=== PATIENT | male | born 1950 | race Caucasian/White ===

== ENCOUNTER → 2021-04-08 | Outpatient (CLI) | payer OTHER ==
[~2021-04-08] MED LIST: CHILDREN'S ASPI81 M1 PO; CRESTOR40 MG PO; FLOMAX0.4 MG PO; NEXIUM 40 MG CA40 M1 PO; PROSCAR 5MG TABL5 MG PO; ZETIA10 MG PO
== END ==
LOC: SJCVC 10:36 → SJCVCIMAG 10:36
PROVIDERS: ATTEND Internal Medicine Cardiovascular Disease
DX: I65.23 Occlusion and stenosis of bilateral carotid arteries (principal); R07.9 Chest pain, unspecified; R00.0 Tachycardia, unspecified; I49.3 Ventricular premature depolarization; R94.39 Abnormal result of other cardiovascular function study; R93.1 Abnormal findings on diagnostic imaging of heart and coronary circulation; I25.10 Atherosclerotic heart disease of native coronary artery without angina pectoris; E78.00 Pure hypercholesterolemia, unspecified; I34.0 Nonrheumatic mitral (valve) insufficiency; R07.2 Precordial pain; R06.00 Dyspnea, unspecified; R09.89 Other specified symptoms and signs involving the circulatory and respiratory systems; L65.9 Nonscarring hair loss, unspecified; F41.9 Anxiety disorder, unspecified; I10 Essential (primary) hypertension; K63.5 Polyp of colon; K58.9 Irritable bowel syndrome, unspecified; K43.9 Ventral hernia without obstruction or gangrene; M79.10 Myalgia, unspecified site; B35.4 Tinea corporis; L30.9 Dermatitis, unspecified; K22.10 Ulcer of esophagus without bleeding; Z72.89 Other problems related to lifestyle; Z79.82 Long term (current) use of aspirin; Z79.899 Other long term (current) drug therapy

== ENCOUNTER → 2021-04-09 | Outpatient (CLI) | payer OTHER ==
[~2021-04-09] VITALS: Ht 182.9 cm; Wt 95.7 kg
[~2021-04-09] MED LIST changes: +COQ-10100 MG PO; +VITAMIN D325 MC2 PO
--- NOTE | ~2021-04-09 | HC ---
[facility] [place] [address] CONSULTATION Name: FABIANO YEAGER Room #: REG Milan Seymour#: [id number] Admission: 04/09/21 Attend Phys: Mark Falk MD, Discharge: Date of : 54 Report #: [id number] THIS REPORT FOR: cc: Markell Moon MD, Kevin MD Forman,Wilberto Alatorre MD ~ DATE OF SERVICE: 04/09/2021 We were asked to see the patient by Dr. Falk. HISTORY OF PRESENT ILLNESS: The patient is a 70 year old with coronary artery disease. The patient presents with progressive exertional angina. The patient had an elevated calcium score and had a nuclear stress test that showed a reversible defect in the lateral wall, septum and apex. Cardiac catheterization today shows important 3-vessel coronary disease including 99% LAD lesions, 99% circumflex stenosis and 70% posterolateral lesion in the right coronary. Left ventricular function is satisfactory; however, the patient denies having had coronary problems in the past. PAST MEDICAL HISTORY: Significant for hyperlipidemia. The patient denies hypertension and diabetes. MEDICATIONS: Include aspirin, Nexium, Zetia, Proscar, Crestor and Flomax. ALLERGIES: No allergies to medication. SOCIAL HISTORY: The patient is a never smoker. He claims to be an active bike rider, but has curtailed this activity recently. REVIEW OF SYSTEMS: GENERAL: No weight change, no fever or chills. EYES: Wears glasses. No new vision problems. ENT: Denies hearing problems, sinus problems. RESPIRATORY: Denies shortness of breath. CARDIAC: Occasional rest angina, decreased exercise capacity, exertional angina as mentioned. GASTROINTESTINAL: Denies nausea, vomiting, blood. GENITOURINARY: Denies urgency, frequency, blood. MUSCULOSKELETAL: Denies bone or joint pain. SKIN: Denies rash or infection. NEUROLOGIC: Denies motor or sensory dysfunction. HEMATOLOGIC: Denies bruisability or bleeding. ENDOCRINE: Denies goiter or tremor. PHYSICAL EXAMINATION: GENERAL: The patient is a pleasant fellow. [facility] [address] [place] [address] CONSULTATION Name: FABIANO YEAGER SUZANNE Room #: REG ASHLEY Bowman#: [id number] Admission: 04/09/21 Attend Phys: Mark Falk MD, Discharge: Date of : 54 Report #: [id number] VITAL SIGNS: Blood pressure is 150/100, heart rate is 70. HEENT: No scleral icterus. No arcus. NECK: No mass. I hear no bruits. CHEST: Clear to auscultation. HEART: Rhythm regular, no murmur. ABDOMEN: Soft. EXTREMITIES: No clubbing, cyanosis or edema. VASCULAR: 2+ distal pulses. No obvious saphenous vein problems. SKIN: No rash or infection. MUSCULOSKELETAL: No bone or joint asymmetry or deformity. NEUROLOGIC: No motor or sensory dysfunction. PSYCHIATRIC: Oriented x 3 and appropriate, shows insight into problem. I reviewed the findings of the cardiac catheterization and discussed our rationale for recommending coronary artery bypass surgery. Risks and details were discussed. Options and alternatives were reviewed. Risks include, but are not limited to, bleeding, infection, anesthesia risks, heart and lung problems, stroke and . The patient understands all of this and wishes to proceed. We will try to arrange surgery for Wednesday, 04/14. Thank you for the consult. By: 1148 2244 Wilberto Olivares MD /nt
[2021-04-09 07:28] VITALS: BP 151/91
[2021-04-09 07:44] LABS: HEMATOCRIT 49.6 % (42.0-52.0); HEMOGLOBIN 16.8 gm/dL (14.0-18.0); MCH 31.5 pg (26.0-34.0); MCHC 33.9 g/dL (28.0-37.0); RBC 5.34 mil/uL (4.50-6.00); RDW 12.8 % (10.5-14.5); WBC 6.8 thou/uL (4.0-11.0)
[2021-04-09 07:52] LABS: CALCIUM 9.6 mg/dL (8.5-10.1); CREATININE 1.1 mg/dL (0.7-1.3); POTASSIUM 3.7 mmol/L (3.5-5.1)
--- NOTE | 2021-04-09 08:24 | EKG ---
[place] [address] [facility] [place] [address] ELECTROCARDIOGRAM REPORT Name: FABIANO YEAGER [facility] [id number] Admission: 04/09/21 Attend Phys: Mark Falk MD, Discharge: Date of : 54 Report #: [id number] [facility] Test Date: 2021-04-09 Test Time: 07:57:06 Pat Name: FABIANO YEAGER Department: Room: Gender: Professor Of Communication And Writing: : 1950 Requested By: Mark Falk Order Number: [id number] : Fred Aleman Measurements Intervals [place] Rate: 63 P: 31 WI: 153 QRS: 0 QRSD: 97 T: 56 QT: 407 QTc: 417 Interpretive Statements Sinus rhythm Abnormal R-wave progression, early transition No previous ECG available for comparison Electronically Signed On 04-09-2021 8:24:18 PAYMENT POSTER by Fred Aleman [email or web address] <ELECTRONICALLY SIGNED> By: Fred Aleman MD, [facility] 04/09/21 0824 0757 0757 Fred Aleman MD, FACC /EPI
[2021-04-09 13:15] LABS: URINE BILIRUBIN NEGATIVE (Negative); URINE BLOOD NEGATIVE (Negative); URINE CLARITY CLEAR; URINE COLOR YELLOW; URINE GLUCOSE-RANDOM* NEGATIVE (Negative); URINE KETONES NEGATIVE (Negative); URINE LEUKOCYTES-REFLEX NEGATIVE (Negative); URINE NITRITE-REFLEX NEGATIVE (Negative); URINE PROTEIN (DIPSTICK) NEGATIVE (Negative); URINE SPECIFIC GRAVITY <= 1.005 (1.005-1.035); URINE UROBILINOGEN 0.2 E.U./dl (0.2-1.0)
[2021-04-09 13:20] LABS: BASOPHILS 0.7 % (0.0-2.0); EOSINOPHILS 0.5 % (0.0-3.0); HEMATOCRIT 48.1 % (42.0-52.0); HEMOGLOBIN 16.3 gm/dL (14.0-18.0); LYMPHOCYTES 21.7 % (24.0-44.0); MCH 31.8 pg (26.0-34.0); MCHC 33.9 g/dL (28.0-37.0); MCV 93.9 fL (80.0-100.0); MONOCYTES 7.1 % (1.0-8.0); PLATELET COUNT 168 thou/uL (150-400); RBC 5.12 mil/uL (4.50-6.00); RDW 12.7 % (10.5-14.5); WBC 7.1 thou/uL (4.0-11.0)
[2021-04-09 13:35] LABS: CALCIUM 9.2 mg/dL (8.5-10.1); CREATININE 1.1 mg/dL (0.7-1.3); POTASSIUM 4.1 mmol/L (3.5-5.1)
[2021-04-09 13:36] LABS: APTT 27.7 Seconds (24.5-32.8); INR 1.09; PROTIME 11.8 Seconds (10.5-12.1)
[2021-04-09 13:41] LABS: ALBUMIN 3.7 g/dL (3.4-5.0); TOTAL BILIRUBIN 0.9 mg/dL (0.2-1.0); TOTAL PROTEIN 6.6 g/dL (6.4-8.2)
--- NOTE | 2021-04-09 13:52 | CATHLAB ---
[facility] [place] [address] INVASIVE PROCEDURE REPORT Name: FABIANO YEAGER Room #: REG ASHLEY SeymourLeann#: [id number] Admission: 04/09/21 Attend Phys: Mark Falk MD, Discharge: Date of : 54 Report #: [id number] THIS REPORT FOR: cc: Markell Moon MD, Kevin MD Mancuso, Gerald M. MD [facility] ~ APPROVED REPORT Study performed: 04/09/2021 09:36:06 Patient Details Patient Status: Out-Patient Room #: The patient is a 70 year-old male Event Personnel Mark Falk Coroner Forensic Technician, Joselyn Powell RTR, INFORMATION SCIENTIST Monitor, Tommie Waterman RN RN, Flory Pacheco RTR Scrub Procedures Performed Art Access - R femoral artery* Left Heart Cath w/or w/o Coronaries 5889120 [facility] Aortogram Abdominal Peripheral Angio 951598 Hemostasis w/ Mynx 41319 Initial Mod Sed Same Phys/QHP Gr5y 589033 39419 Mod Sed Same Phys/QHP Ea 604722 Procedure Narrative The Right Groin^ was infiltrated with 1% Lidocaine subcutaneous anesthesia. A PINNACLE 6FR Sheath #[id number] sheath was inserted into the RFA^. Coronary angiography was performed using coronary diagnostic catheters. The right coronary system was accessed and visualized with a JR4 catheter. The left coronary system was accessed and visualized with a JL4 catheter. The left ventricle was accessed and visualized with a PIGTAIL catheter. Left ventriculogram was performed in 30 degree projection. An aortogram of the abdominal aorta was performed. Pre-demployment femoral angiogram was performed . Closure device was deployed with a Fr MYNXGRIP 6/7F #[id number]. The patient tolerated the procedure well and there were no complications associated with the procedure. There was no hematoma. Intraoperative Conscious Sedation Sedation start time: 9:54 Case end Time: 10:22 Fentanyl 50 mcg Versed 2.0 mg [facility] [address] [place] [address] INVASIVE PROCEDURE REPORT Name: SHOBHAFABIANO SUZANNE Room #: [facility]#: [id number] Admission: 04/09/21 Attend Phys: Mark Falk, Discharge: Date of : 54 Report #: [id number] Fluoro Time: 1.50 minutes Dose: DAP 7906.20 cGycm2 970 mGy Contrast Type and Amount: Omnipaque 130 ml Hemodynamics The aortic pressure is 141/77 mmHg with a mean of 104 mmHg. The left ventricular pressure is 151/-2 mmHg with a mean of mmHg. The left ventricular end diastolic pressure is 21 mmHg. Conclusion #1 Normal left ventricular size and systolic function EF 60%. #2 tortuous abdominal aorta without significant aneurysm formation. Mild plaquing is noted. #3 left main is heavily calcified ostial and distal 30 to 40% giving rise to LAD and circumflex. #4 there is an ostial LAD which is very eccentric which is a high-grade lesion calcification also a high-grade segment just distal to a diagonal takeoff which is subtotaled. And heavily calcified. #5 ostial circumflex large area of calcium and high-grade subtotal lesion. Nondominant #6 large dominant right coronary also heavily calcified eccentric 50% lesion moderate disease throughout and then the posterior lateral branch has a mid vessel lesion of 70% PDA mildly diseased some collateral filling to the left system is noted faintly. Recommendations and plan: Continue aggressive risk factor modification there is extensive calcification high-grade nature of ostial disease circumflex proximal LAD and distal left main. This is best served with revascularization by bypass. This would not be amenable to stenting procedure atherectomy would be difficult here also. Will have CV surgical consultation. <ELECTRONICALLY SIGNED> By: Mark Falk MD, FACC 04/09/21 1351 1351 135 Mark Falk MD, FACC /INF
--- NOTE | 2021-04-09 14:53 | 2DMMODE ---
[facility] [place] [address] 2 D/M-MODE ECHOCARDIOGRAM Name: FABIANO YEAGER Room #: REG [facility]#: [id number] Admission: 04/09/21 Attend Phys: Mark Falk MD, Discharge: Date of : 54 Report #: [id number] THIS REPORT FOR: cc: Markell Moon MD,Fred Rojas MD, MD [facility] ~ APPROVED REPORT Study performed: 04/09/2021 13:57:09 EXAM: Comprehensive 2D, Doppler, and color-flow Echocardiogram Patient Location: Out-Patient Room #: CV 1 Status: routine BSA: 2.18 HR: 56 bpm BP: 132/81 mmHg Rhythm: Bradycardia Other Information Study Quality: Good Indications CAD 2D Dimensions RVDd: 39.30 mm IVSd: 8.96 (7-11mm) LVOT Diam: 22.17 (18-24mm) LVDd: 50.81 mm PWd: 9.04 (7-11mm) Ascending Ao: 42.43 (22-36mm) LVDs: 34.34 (25-40mm) Left Atrium: 33.79 (27-40mm) Aortic Root: 27.93 mm Volumes Left Atrial Volume (Systole) Single Plane 4CH: 38.43 mL Single Plane 2CH: 53.98 mL LA ESV Index: 24.00 mL/m2 Aortic Valve AoV Peak Nima.: 1.54 m/s AO Peak Gr.: 9.47 mmHg LVOT Max P.51 mmHg LVOT Max V: 1.06 m/s SHAYAN Vmax: 2.66 cm2 [facility] [address] [place] [address] 2 D/M-MODE ECHOCARDIOGRAM Name: FABIANO YEAGER Room #: [facility] Colby#: [id number] Admission: 04/09/21 Attend Phys: Mark Falk, Discharge: Date of : 54 Report #: [id number] Mitral Valve E/A Ratio: 0.7 MV Decel. Time: 369.79 ms MV E Max Nima.: 0.51 m/s MV A Nima.: 0.70 m/s MV PHT: 107.24 ms IVRT: 143.02 ms Pulmonary Valve PV Peak Nima.: 0.78 m/s PV Peak Gr.: 2.46 mmHg Pulmonary Vein P Vein S: 0.57 m/s P Vein A: 0.23 m/s P Vein D: 0.28 m/s P Vein A Dur.: 106.1 msec P Vein S/D Ratio: 2.04 Left Ventricle The left ventricle is normal size. There is normal LV segmental wall motion. There is normal left ventricular wall thickness. Left ventricular systolic function is normal. The left ventricular ejection fraction is within the normal range. LVEF is 55-60%. Grade I - abnormal relaxation pattern. Right Ventricle The right ventricle is normal size. The right ventricular systolic function is normal. Atria The left atrium size is normal. The right atrium size is normal. Aortic Valve The aortic valve is normal in structure. Aortic valve is calcified. No aortic regurgitation is present. There is no aortic valvular stenosis. Mitral Valve The mitral valve is normal in structure. There is no mitral valve regurgitation noted. No evidence of mitral valve stenosis. Tricuspid Valve The tricuspid valve is normal in structure. There is no tricuspid valve regurgitation noted. Pulmonic Valve [facility] [address] [place] [address] 2 D/M-MODE ECHOCARDIOGRAM Name: FABIANO YEAGER SUZANNE Room #: [facility] Colby#: [id number] Admission: 04/09/21 Attend Phys: Mark Falk, Discharge: Date of : 54 Report #: [id number] The pulmonary valve is normal in structure. There is no pulmonic valvular regurgitation. Great Vessels The aortic root is normal in size. The ascending aorta is dilated measuring 4.5 cm. IVC is normal in size and collapses >50% with inspiration. Pericardium There is no pericardial effusion. <Conclusion> Normal left ventricle size/wall thickness Ejection fraction 60% Grade 1 diastolic dysfunction Normal right ventricle size/function Normal atrial size Aortic valve sclerotic without stenosis Mild mitral annular calcification, no stenosis No tricuspid valve insufficiency No pericardial effusion Mildly dilated ascending aorta estimated 4.5 cm <ELECTRONICALLY SIGNED> By: Fred Aleman MD, FACC 04/09/211452 52 52 Fred Aleman MD, FACC /INF
[2021-04-10 02:06] LABS: GLYCOHEMOGLOBIN (HGB A1C) 5.6 % (4.8-5.6)
== END | disposition home or self-care (01) ==
LOC: CATH 06:19
PROVIDERS: Surgery Vascular Surgery; ATTEND Internal Medicine Cardiovascular Disease
DX: R94.39 Abnormal result of other cardiovascular function study (principal); R07.9 Chest pain, unspecified; I25.10 Atherosclerotic heart disease of native coronary artery without angina pectoris; I10 Essential (primary) hypertension; E78.00 Pure hypercholesterolemia, unspecified; K21.9 Gastro-esophageal reflux disease without esophagitis; Z98.890 Other specified postprocedural states; Z86.73 Personal history of transient ischemic attack (TIA), and cerebral infarction without residual deficits; Z79.899 Other long term (current) drug therapy; Z82.49 Family history of ischemic heart disease and other diseases of the circulatory system; Z79.82 Long term (current) use of aspirin; Z20.822 Contact with and (suspected) exposure to COVID-19; Z01.818 Encounter for other preprocedural examination

== ENCOUNTER 2021-04-14 13:03 | Inpatient (IN) | payer OTHER ==
[~2021-04-14] VITALS: Ht 182.9 cm; Wt 92.5 kg
[2021-05-27] VITALS (8 sets, daily range): BP systolic 91–164; BP diastolic 64–93
[2021-05-27] MEDS ORDERED: NEXIUM40 MG PO (07:27)
[2021-05-27 12:37] LABS: MCH 31.6 pg (26.0-34.0); MCHC 34.9 g/dL (28.0-37.0); MCV 90.5 fL (80.0-100.0); RBC 3.69 mil/uL (4.50-6.00); RDW 12.8 % (10.5-14.5); WBC 15.1 thou/uL (4.0-11.0)
[2021-05-27 12:43] LABS: HEMATOCRIT 33.4 % (42.0-52.0); HEMOGLOBIN 11.7 gm/dL (14.0-18.0)
[2021-05-27 12:53] LABS: INR 1.61; PROTIME 17.2 Seconds (10.5-12.1)
[2021-05-27 12:54] LABS: APTT 32.4 Seconds (24.5-32.8)
[2021-05-27 13:46] LABS: POC BE 3 mmol/L (-2.0 to +3.0); POC CA IONIZED 5.1 mg/dL (4.5-5.3); POC GLUCOSE 116 mg/dL (70-99); POC HCO3 28.2 mmol/L (22.0-26.0); POC HEMOGLOBIN 13.9 g/dL (14.0-18.0); POC POTASSIUM 4.6 mmol/L (3.5-5.1); POC SODIUM 139 mmol/L (136-145); POC pCO2 45.3 mmHg (35.0-45.0); POC pH 7.402 (7.360-7.450)
[2021-05-27 13:46] LABS: POC BE 4 mmol/L (-2.0 to +3.0); POC CA IONIZED 4.8 mg/dL (4.5-5.3); POC GLUCOSE 125 mg/dL (70-99); POC HCO3 28.4 mmol/L (22.0-26.0); POC HEMOGLOBIN 11.2 g/dL (14.0-18.0); POC POTASSIUM 4.9 mmol/L (3.5-5.1); POC SODIUM 139 mmol/L (136-145); POC pCO2 43.3 mmHg (35.0-45.0); POC pH 7.425 (7.360-7.450)
[2021-05-27 13:46] LABS: POC BE 4 mmol/L (-2.0 to +3.0); POC CA IONIZED 4.7 mg/dL (4.5-5.3); POC GLUCOSE 115 mg/dL (70-99); POC HCO3 28.4 mmol/L (22.0-26.0); POC HEMOGLOBIN 11.2 g/dL (14.0-18.0); POC POTASSIUM 4.6 mmol/L (3.5-5.1); POC SODIUM 137 mmol/L (136-145); POC pCO2 43.8 mmHg (35.0-45.0)
[2021-05-27 13:46] LABS: POC BE 5 mmol/L (-2.0 to +3.0); POC CA IONIZED 4.6 mg/dL (4.5-5.3); POC GLUCOSE 140 mg/dL (70-99); POC HCO3 28.8 mmol/L (22.0-26.0); POC HEMOGLOBIN 10.9 g/dL (14.0-18.0); POC SODIUM 138 mmol/L (136-145); POC pCO2 43.2 mmHg (35.0-45.0); POC pH 7.433 (7.360-7.450)
[2021-05-27 13:46] LABS: POC BE 3 mmol/L (-2.0 to +3.0); POC CA IONIZED 5.2 mg/dL (4.5-5.3); POC GLUCOSE 108 mg/dL (70-99); POC HCO3 28.6 mmol/L (22.0-26.0); POC HEMOGLOBIN 14.3 g/dL (14.0-18.0); POC POTASSIUM 4.1 mmol/L (3.5-5.1); POC SODIUM 139 mmol/L (136-145); POC pCO2 48.5 mmHg (35.0-45.0); POC pH 7.379 (7.360-7.450)
[2021-05-27 13:46] LABS: POC BE 0 mmol/L (-2.0 to +3.0); POC CA IONIZED 4.9 mg/dL (4.5-5.3); POC GLUCOSE 122 mg/dL (70-99); POC HCO3 25.7 mmol/L (22.0-26.0); POC HEMOGLOBIN 12.2 g/dL (14.0-18.0); POC POTASSIUM 4.2 mmol/L (3.5-5.1); POC SODIUM 141 mmol/L (136-145); POC pCO2 46.1 mmHg (35.0-45.0); POC pH 7.354 (7.360-7.450)
[2021-05-27 13:46] LABS: POC BE 1 mmol/L (-2.0 to +3.0); POC CA IONIZED 5.2 mg/dL (4.5-5.3); POC GLUCOSE 131 mg/dL (70-99); POC HEMOGLOBIN 11.2 g/dL (14.0-18.0); POC POTASSIUM 4.1 mmol/L (3.5-5.1); POC SODIUM 139 mmol/L (136-145); POC pCO2 42.5 mmHg (35.0-45.0); POC pH 7.395 (7.360-7.450)
[2021-05-27 13:46] LABS: POC BE 4 mmol/L (-2.0 to +3.0); POC CA IONIZED 4.6 mg/dL (4.5-5.3); POC GLUCOSE 140 mg/dL (70-99); POC HCO3 27.9 mmol/L (22.0-26.0); POC HEMOGLOBIN 10.2 g/dL (14.0-18.0); POC POTASSIUM 4.6 mmol/L (3.5-5.1); POC SODIUM 137 mmol/L (136-145); POC pCO2 41.2 mmHg (35.0-45.0); POC pH 7.439 (7.360-7.450)
--- NOTE | 2021-05-27 14:15 | NUR ---
RECIEVED PT FROM OR. PLACED ON MONITOR, AND VENT. BLOOD DRAWN. DR. BUSTOS HERE. VSS. 2ND UNIT OF FFP INFUSED. IN WAITING ROOM. UPDATED. EMOTIONAL SUPPORT GIVEN. SYLVAIN KIM PLACED ON PT. KURTIS AT 57CM. Diamond HULL.
[2021-05-27 14:32] LABS: HEMATOCRIT 35.2 % (42.0-52.0); HEMOGLOBIN 11.9 gm/dL (14.0-18.0); MCH 31.3 pg (26.0-34.0); MCV 92.1 fL (80.0-100.0); RBC 3.82 mil/uL (4.50-6.00); RDW 12.8 % (10.5-14.5)
[2021-05-27 14:38] LABS: CALCIUM 8.2 mg/dL (8.5-10.1); POTASSIUM 4.5 mmol/L (3.5-5.1)
[2021-05-27 14:39] LABS: BE(vivo) -4.2 mmol/L (-2 to +3); HCO3 23.4 mmol/L (22.0-26.0); PCO2 53.3 mmHg (35.0-45.0); PO2 164.7 mmHg (80.0-100.0); sO2 98.8 % (92.0-98.0)
[2021-05-27 14:45] LABS: APTT 32.1 Seconds (24.5-32.8); INR 1.3
--- NOTE | 2021-05-27 15:00 | NUR ---
Nutrition: S/P CABG x 5, POD 0. Consult received. RD will followup at later date to determine education needs.
[2021-05-27 15:32] LABS: BE(vivo) -4.9 mmol/L (-2 to +3); HCO3 21.5 mmol/L (22.0-26.0); PCO2 44.5 mmHg (35.0-45.0); PO2 149.2 mmHg (80.0-100.0); sO2 98.7 % (92.0-98.0)
[2021-05-27 15:33] LABS: pH 7.301 (7.360-7.450)
--- NOTE | 2021-05-27 16:53 | NUR ---
1630-SPOKE W PT'S OUT IN ICU WAITING ROOM. DID NOT WANT TO COME BACK TO SEE PT- I CAN'T SEE HIM LIKE THAT. UPDTE GIVEN. ICU VISITING RULES, 4 DIGIT CODE, PHONE NUMBER TO UNIT GIVEN TO . ENC TO CALL TO CK ON PT.--VW
[2021-05-27 17:33] LABS: BE(vivo) -4.8 mmol/L (-2 to +3); HCO3 19.8 mmol/L (22.0-26.0); PCO2 35.4 mmHg (35.0-45.0); PO2 163.1 mmHg (80.0-100.0); pH 7.366 (7.360-7.450)
[2021-05-27 18:01] LABS: BE(vivo) -4.4 mmol/L (-2 to +3); HCO3 20.6 mmol/L (22.0-26.0); PCO2 37.6 mmHg (35.0-45.0); PO2 193.4 mmHg (80.0-100.0); pH 7.356 (7.360-7.450); sO2 99.3 % (92.0-98.0)
--- NOTE | 2021-05-27 19:28 | NUR ---
PT BP FELL POST FENTANYL. ALBUMIN GIVEN WIDE OPEN. DR. BUSTOS HERE.
[2021-05-28 03:53] VITALS: BP 89/62
[2021-05-28 05:25] LABS: HEMATOCRIT 31.6 % (42.0-52.0); HEMOGLOBIN 11.1 gm/dL (14.0-18.0); MCH 32.2 pg (26.0-34.0); MCHC 35.1 g/dL (28.0-37.0); MCV 91.8 fL (80.0-100.0); RBC 3.44 mil/uL (4.50-6.00); WBC 12.7 thou/uL (4.0-11.0)
[2021-05-28 06:07] LABS: CALCIUM 7.9 mg/dL (8.5-10.1)
--- NOTE | 2021-05-28 06:47 | NUR ---
ON TRACK WITH CLINICAL PATHWAY. HEMODYNAMICS REMAIN STABLE WITHIN PARAMETERS. URINE OUTPUT 625 CC FOR THIS SHIFT. PT IS HAVING HEMATURIA STILL, BUT NO MORE THAN DR. BUSTOS SAW ON ROUNDS AT 1900.
--- NOTE | 2021-05-28 07:17 | EKG ---
[address] [place] [address] ELECTROCARDIOGRAM REPORT Name: FABIANO YEAGER Room #: 249-P ADM IN M.R.#: [id number] Admission: 05/27/21 Attend Phys: Wilberto Olivares MD Discharge: Date of : 54 Report #: [id number] [facility] Test Date: 2021-05-27 Test Time: 14:43:48 Pat Name: FABIANO YEAGER Department: Room: 249 Gender: M Drupal Php Developer: : 1950 Requested By: Wilberto Olivares Order Number: [id number] MD: Fred Aleman Measurements Intervals [place] Rate: 94 P: 42 MA: 142 QRS: 50 QRSD: 126 T: 56 QT: 383 QTc: 479 Interpretive Statements Sinus rhythm IVCD, consider atypical RBBB Compared to ECG 05/26/2021 11:30:08 Left-axis deviation no longer present Electronically Signed On 05-28-2021 7:17:23 MUSIC WRITER by Fred Aleman [email or web address] <ELECTRONICALLY SIGNED> By: Fred Aleman MD, [facility] 05/28/21 0717 1443 1443 Fred Aleman MD, FAC /EPI
--- NOTE | 2021-05-28 07:48 | EKG ---
[place] [address] [facility] [facility] [place] [place] [address] ELECTROCARDIOGRAM REPORT Name: FAIBANO YEAGER Room #: 249-P ADM IN M.R.#: [id number] Admission: 05/27/21 Attend Phys: Wilberto Olivares MD Discharge: Date of : 54 Report #: [id number] [facility] Test Date: 2021-05-28 Test Time: 07:37:49 Pat Name: FABIANO YEAGER Department: Room: 249 P Gender: M Swiss Machinist: : 1950 Requested By: Wilberto Olivares Order Number: [id number] MD: Sravan Ornelas Measurements Intervals [place] Rate: 87 P: 26 [place]: 139 QRS: -14 QRSD: 136 T: -8 QT: 384 QTc: 462 Interpretive Statements Sinus rhythm Right bundle branch block Compared to ECG 05/27/2021 14:43:48 No significant changes found Electronically Signed On 05-28-2021 7:48:04 PARKING METER MECHANIC by Sravan Ornelas [email or web address] <ELECTRONICALLY SIGNED> By: Sravan Ornelas MD, [facility] 05/28/21 0748 0737 6 Sravan Ornelas MD, FACC /EPI
[2021-05-28 07:53] VITALS: BP 104/68
[2021-05-28 10:09] VITALS: BP 113/66
[2021-05-28 10:17] VITALS: BP 101/68
--- NOTE | 2021-05-28 16:15 | O ---
[facility] [place] [address] OPERATIVE REPORT Name: FABIANO YEAGER Room #: 249-P ADM IN M.R.#: [id number] Admission: 05/27/21 Attend Phys: Wilberto Olivares MD Discharge: Date of : 54 Report #: [id number] THIS REPORT FOR: cc: Markell Moon MD,Markell Olivares,Wilberto Alatorre MD ~ DATE OF SERVICE: 05/27/2021 PREOPERATIVE DIAGNOSIS: Coronary artery disease. POSTOPERATIVE DIAGNOSIS: Coronary artery disease. OPERATION: Coronary artery bypass x5 including left internal mammary artery to left anterior descending artery, saphenous vein to diagonal and marginal arteries and saphenous vein to posterior descending and posterolateral branches of the right coronary. SURGEON: Wilberto Olivares MD CHARGE AUDITOR: STEPHANIE Lopez. ANESTHESIA: General. INDICATION: The patient is a 70-year-old with important 3-vessel coronary disease including 99% LAD, 99% circumflex, and 70% posterolateral lesions. Left ventricular function is satisfactory. FINDINGS AND TECHNIQUE: After general anesthesia was established, saphenous vein was harvested and prepared for use as a conduit. Exposure was obtained through median sternotomy. Left internal mammary artery was harvested from chest wall. Pericardial well was made. Cannulation sutures were placed. Heparin was given. Aorta was cannulated. Right atrium was cannulated. Cardioplegia needle was positioned in the aortic root. Retrograde cardioplegic catheter was placed in the coronary sinus. Cardiopulmonary bypass was established. Aorta was cross clamped. Antegrade and retrograde cardioplegia were given. Ice was poured into the pericardial well. The heart was stopped. During electromechanical arrest, the distal anastomoses were performed. An end-to-side anastomosis was made between vein and the posterolateral branch of the right coronary. Cold cardioplegia was given. The same segment of vein was sewn in yldu-wj-fais fashion to the posterior descending artery. Cold cardioplegia was given. Separate segment of vein was sewn in end-to-side fashion to the large marginal artery. Cold cardioplegia was given. The same segment of vein was sewn in pofa-fb-hczi fashion to the diagonal artery. Cold cardioplegia was given. Left internal mammary artery was sewn in end-to-side fashion to left anterior descending artery. Patency of this vessel was checked [facility] [address] [place] [address] OPERATIVE REPORT Name: SHOBHAFABIANO SUZANNE Room #: 249-P [facility] IN .R.#: [id number] Admission: 05/27/21 Attend Phys: Wilberto Olivares MD Discharge: Date of : 54 Report #: [id number] with the temperature technique. Cold cardioplegia was given. Two proximal anastomoses were performed. When these were complete, warm retrograde cardioplegia was given followed by warm continuous blood through the coronary sinus. When this infusion was complete, the crossclamp was removed. De-airing maneuvers were performed. The anastomoses were inspected and found to be satisfactory. As the patient warmed, nice cardiac activity resumed, chest tubes and pacing wires were placed. A marker was placed around the proximal anastomoses. When the patient was warm, he was weaned from cardiopulmonary bypass. Venous cannula was removed. Protamine was given. The aortic cannula was removed. Flows were measured in the bypass grafts. When hemostasis was satisfactory, chest was irrigated with antibiotic solution and closed in the usual fashion. The patient was taken to the Intensive Care Unit in good condition having tolerated the procedure well. All counts were reported as correct. <ELECTRONICALLY SIGNED> By: Wilberto Olivares MD 05/28/21 1615 1815 1831 Wilberto Olivares MD /nt
--- NOTE | 2021-05-28 16:28 | NUR ---
I have reviewed the documentation by JAMAAL BUTLER from 05/28/21 to 05/28/21 and I concur with it. HECTOR JUAREZ, PT, DPT
[2021-05-29 05:26] LABS: HEMATOCRIT 30.8 % (42.0-52.0); HEMOGLOBIN 10.8 gm/dL (14.0-18.0); MCV 91.5 fL (80.0-100.0); RBC 3.37 mil/uL (4.50-6.00); WBC 18.4 thou/uL (4.0-11.0)
[2021-05-29 05:40] LABS: CALCIUM 8.6 mg/dL (8.5-10.1); CREATININE 0.9 mg/dL (0.7-1.3); POTASSIUM 3.9 mmol/L (3.5-5.1)
--- NOTE | 2021-05-29 10:23 | EKG ---
[place] [address] [facility] [email or web address] [address] ELECTROCARDIOGRAM REPORT Name: FABAINO YEAGER Room #: 249-P ADM IN M.R.#: [id number] Admission: 05/27/21 Attend Phys: Wilberto Olivares MD Discharge: Date of : 54 Report #: [id number] [facility] Test Date: 2021-05-29 Test Time: 09:28:31 Pat Name: FABIANO YEAGER Department: Room: 249 P Gender: M Dewaxer: [facility] 1950 Requested By: Wilberto Olivares Order Number: [id number] : Fred Aleman Measurements Intervals [place] Rate: 113 P: [place]: QRS: 1 QRSD: 101 T: 0 QT: 333 QTc: 457 Interpretive Statements Atrial fibrillation RSR' in V1 or V2, right VCD or RVH Borderline T abnormalities, inferior leads Compared to ECG 05/28/2021 07:37:49 Right ventricular hypertrophy now present RSR' in V1 or V2 now present Electronically Signed On 05-29-2021 10:22:55 ABRASIVE GRADER HELPER by Fred Aleman [email or web address] <ELECTRONICALLY SIGNED> By: Fred Aleman MD, [facility] 05/29/21 1022 0928 Fred Aleman MD, [facility] /EPI
--- NOTE | 2021-05-29 18:44 | NUR ---
BEGINNING OF THE SHIFT PT BEGAN UNCOMFORTABLE AND WAS FOUND TO HAVE DISCOMFORT AT THE ABDOMEN AND PAIN TO THE L BACK; DUE TO GAS TRAPMENT AND CHEST TUBE PAIN. NOT LONG AFTER START OF SHIFT, MEDS CHEST TUBES WERE DC'D AND SHORTLY AFTER PT WENT INTO AFIB, MD WAS NOTIFIED, CARDIZEM BOLUS WAS GIVEN THEN MONITORED, ANOTHER DOSE OF CARDIZEM BOLUS WAS GIVEN SUBSEQUENTLY THEN GTT AT RATE OF 10 WAS STARTED FOR COVERAGE. PT WAS VISIBLY WEAKER IN THE MORNING TODAY COMPARED TO YESTERDAY, COULD NOT MOBILIZE WELL, BUT IN THE AFTERNOON PT WAS MORE STEADY/SETTLED, WAS ABLE TO MOVE TO CHAIR WITH ONE PERSON ASSIST. R CHEST TUBE WAS PLACED BY THE MD TO ADDRESS THE PNEUMOTHORAX SHORTLY AFTER AFIB WAS NOTIFIED. GASTRIC/L PLEURAL PAIN APPEARS TO BE BARRIERS TO DISCHARGE AT THIS TIME. PT AT THE TIME OF CHARTING IS ON RA AND MOVING ALONG WELL.
[2021-05-30] VITALS (16 sets, daily range): BP systolic 100–135; BP diastolic 62–90
--- NOTE | 2021-05-30 08:30 | EKG ---
[place] [address] [facility] [place] [address] ELECTROCARDIOGRAM REPORT Name: FABIANO YEAGER Room #: 249-P ADM IN M.R.#: [id number] Admission: 05/27/21 Attend Phys: Wilberto Olivares MD Discharge: Date of : 54 Report #: [id number] [facility] Test Date: 2021-05-30 Test Time: 08:13:34 Pat Name: FABIANO YEAGER Department: Room: 249 P Gender: M Beet Worker: JOHANN : 1950 Requested By: Thalia Torres Order Number: [id number] MD: Sravan Ornelas Measurements Intervals [place] Rate: 81 P: 15 [place]: 141 QRS: 2 QRSD: 84 T: -16 QT: 395 QTc: 459 Interpretive Statements Atrial flutter with a controlled ventricular response RSR' in V1 or V2, right VCD Nonspecific ST and T wave abnormality Compared to ECG 05/29/2021 09:28:31 Heart rate has slowed Nonspecific change in the ST and T wave segments Electronically Signed On 05-30-2021 8:30:37 COOK HELPER FRUIT by Sravan Ornelas [email or web address] <ELECTRONICALLY SIGNED> By: Sravan Ornelas MD, [facility] 05/30/21 0830 2 2 Sravan Ornelas MD, [facility] /EPI
--- NOTE | 2021-05-30 10:00 | NUR ---
up to chair with PT. Diamond Pate PCT leaking serosanguinous drainage, reinforced dressing with 4x4 gauze/tape. well tolerated.
--- NOTE | 2021-05-30 11:54 | NUR ---
GLUCOSE-62. CONSUMED APPLE JUICE 4 OZ WITH SUGAR. LUNCH PENDING. BLECHING, NOT PASSING FLATUS.
--- NOTE | 2021-05-30 12:15 | NUR ---
using incentive spirometer and coughing while splinting heart pillow. consuming lunch.
--- NOTE | 2021-05-30 16:49 | NUR ---
Case opened to follow for dc planning support. Pt is pod# s/p CABG. His up with therapy in his room and on room air. He has chest tubes inplace. He was indep prior to admission and lives at home with his Keyonna. They have 2 steps to enter their home. Pt was active and helped with IADL's. His pcp is Dr. Markell Moon and fine wire drawer is Dr. Falk. He is progressing postop and being seen by therapy. CM to follow along should hh/dme/rehab be indicated. Anticipate outpt f/u and cardiac rehab.
--- NOTE | 2021-05-30 19:15 | NUR ---
pt unable to pass flatus throughout shift. pt positioned upright in bed, then on left side. up in chair with Herlinda, physical therapy. consumed few bites of breakfast. back to bed in afternoon. KUB completed when Dr. Olivares present. pt then NPO x meds, iv tylenol restarted, ns @100cc/hr, pt's home med nexium started and ducolax supp administered. pt up in chair. ambulated to toilet, then finally passed flatus. no stool at this time. ambulated back to chair. pain controlled with tylenol. room air, pulling up to 1,500 on incentive spirometer. in am, coughed up large thick amount of black/brown sputum. later in shift, coughed up scant amounts of sputum. denies nausea, no emesis, belching throughout shift. adequate urine output per trinidad- progressed from anna to dk yellow. pt overall progressing. present a couple of times today. very pleasant, supportive of her . Dr. Olivares present in early am, in early afternoon and twice this evening. updated on pt status. orders received and performed.
[2021-05-31] VITALS (11 sets, daily range): BP systolic 97–135; BP diastolic 59–93
[2021-05-31 03:36] LABS: HEMATOCRIT 30.8 % (42.0-52.0); HEMOGLOBIN 10.6 gm/dL (14.0-18.0); MCH 31.8 pg (26.0-34.0); MCHC 34.4 g/dL (28.0-37.0); MCV 92.5 fL (80.0-100.0); RBC 3.33 mil/uL (4.50-6.00); WBC 10.8 thou/uL (4.0-11.0)
[2021-05-31 03:51] LABS: POTASSIUM 3.6 mmol/L (3.5-5.1)
--- NOTE | 2021-05-31 12:12 | NUR ---
pt progressing this am. midsternal chest discomfort 2/10, splinting with heart pillows when taking deep breaths/coughing, pulling 1,500 x 10 on incentive spirometer. ambulated in alicia with Herlinda PT, well tolerated. SR, afebrile, louis PCT's to water seal, passing flatus. Dr. Olivares present this am. at bedside providing support. report called to EUGENIO Hurtado. transferring pt to CCU #[id number].
--- NOTE | 2021-05-31 15:27 | NUR ---
TOOK OVER CARE OF THIS PATIENT AT 1230. PT AMBULATED FROM ICU TO CCU VIA SBA. PT DENIES SOA, LUNGS CLEAR, HEART RRR, DENIES CHEST PAIN. PT ON ROOM AIR. PT HAS LEFT AND RIGHT PLEURAL CHEST TUBE TO -20 SUCTION AND WATER SEAL; DRESSINGS CDI. PT RESTING IN RECLINER AT THIS TIME WITH FAMILY IN ROOM. PT WALKED WITH PHYSICAL THERAPY THIS AFTERNOON. DENIES ANY NEEDS AT THIS TIME. FALL PRECAUTIONS IN PLACE. CALL LIGHT WITHIN REACH.
[2021-06-01 04:11] VITALS: BP 117/64
--- NOTE | 2021-06-01 07:45 | NUR ---
PT RESTING IN BED TILL 023THEN WANTED BACK TO RECMARTANER, CT'S TO H2O SEAL, VOIDING PER URINAL, SURG. DRESSINGS REMAIN CDI, PT DENIES NEED FOR PAIN MEDS,VSS WILL CONT TO MONITOR PER PPOC.
[2021-06-01 08:50] VITALS: BP 128/76; BP 131/70
[2021-06-01 12:04] VITALS: BP 138/73
[2021-06-01 15:50] VITALS: BP 111/71
--- NOTE | 2021-06-01 17:18 | EKG ---
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
[2021-06-01 20:00] VITALS: BP 130/73
[2021-06-02] VITALS: BP 118/68
[2021-06-02 04:00] VITALS: BP 106/63
[2021-06-02] MEDS ORDERED: PACERONE 200 M200 M1 PO ×2 (07:38)
[2021-06-02 08:00] VITALS: BP 122/81
--- NOTE | 2021-06-02 10:08 | NUR ---
Pt is A&0x4, VS stable and afebrile. Pt ambulated with cardiac clinical rehab specialist and is taking shower with assistance from OT; PHILIP dressing to be changed post shower; pt educated on reason for pre-discharge shower and how to clean body until f/u with Dr. Olivares; pt communicated understanding.
[2021-06-02 11:34] VITALS: BP 122/81
[2021-06-03] MEDS ORDERED: TOPROL XL25 MG PO ×2 (08:02)
[2021-06-03] MEDS ORDERED: PACERONE 200 M200 M1 PO ×2 (08:02)
== END 2021-06-02 13:15 | disposition home or self-care (01) | DRG 236 ==
LOC: PRE 13:03 → ICU 05-27 06:18 → TBA 05-27 06:18 → PRE 05-27 10:06 → ICU 05-27 14:32 → 2N 05-31 12:58
PROVIDERS: Physician Assistant; ADMIT Surgery Vascular Surgery; ATTEND Surgery Vascular Surgery
DX: I25.10 Atherosclerotic heart disease of native coronary artery without angina pectoris (principal); I48.20 Chronic atrial fibrillation, unspecified; D62 Acute posthemorrhagic anemia; J93.9 Pneumothorax, unspecified; K56.7 Ileus, unspecified; Z20.822 Contact with and (suspected) exposure to COVID-19; I48.91 Unspecified atrial fibrillation; Z79.01 Long term (current) use of anticoagulants; E78.00 Pure hypercholesterolemia, unspecified; D69.6 Thrombocytopenia, unspecified; E16.2 Hypoglycemia, unspecified; Z82.49 Family history of ischemic heart disease and other diseases of the circulatory system
CPT/HCPCS: 10078; 10081; 47000; 47001; 47002; 47297; 48889; 50010; 50249; 50668; 51301; 52131; 52259; 52287; 53327; 53358; 54118; 56455; 56524; 56525; 56526; 56527; 56528; 56531; 56534; 56668; 56719; 56760; 56898; 57093; 57167; 58585; 58856; 58901; 58918; 62110; 62950; 65003; 65020; 65090; 65120

== ENCOUNTER → 2021-05-26 | Outpatient (CLI) | payer OTHER ==
[~2021-05-26] MED LIST changes: +NEXIUM40 MG PO
[2021-05-26 11:28] LABS: ABSOLUTE NEUTROPHILS 3.1 thou/uL (1.4-8.2); EOSINOPHILS 1.4 % (0.0-3.0); HEMOGLOBIN 16.3 gm/dL (14.0-18.0); LYMPHOCYTES 28.6 % (24.0-44.0); MCH 31.6 pg (26.0-34.0); MCHC 34.6 g/dL (28.0-37.0); MCV 91.5 fL (80.0-100.0); MONOCYTES 11.1 % (1.0-8.0); PLATELET COUNT 182 thou/uL (150-400); POLYS 57.9 % (36.0-66.0); RBC 5.14 mil/uL (4.50-6.00); RDW 12.7 % (10.5-14.5); WBC 5.3 thou/uL (4.0-11.0)
[2021-05-26 11:30] LABS: URINE BILIRUBIN NEGATIVE (Negative); URINE BLOOD NEGATIVE (Negative); URINE CLARITY CLEAR; URINE COLOR YELLOW; URINE GLUCOSE-RANDOM* NEGATIVE (Negative); URINE KETONES NEGATIVE (Negative); URINE LEUKOCYTES-REFLEX NEGATIVE (Negative); URINE NITRITE-REFLEX NEGATIVE (Negative); URINE PROTEIN (DIPSTICK) NEGATIVE (Negative); URINE UROBILINOGEN 0.2 E.U./dl (0.2-1.0)
[2021-05-26 11:42] LABS: ALBUMIN 4.1 g/dL (3.4-5.0); CALCIUM 9.6 mg/dL (8.5-10.1); POTASSIUM 4.5 mmol/L (3.5-5.1); TOTAL BILIRUBIN 0.8 mg/dL (0.2-1.0); TOTAL PROTEIN 6.9 g/dL (6.4-8.2)
[2021-05-26 11:58] LABS: APTT 26.9 Seconds (24.5-32.8); INR 1.05; PROTIME 11.4 Seconds (10.5-12.1)
--- NOTE | 2021-05-26 12:25 | EKG ---
[address] [place] [address] ELECTROCARDIOGRAM REPORT Name: FABIANO YEAGER Room #: REG [facility] [id number] Admission: 05/26/21 Attend Phys: Wilberto Olivares MD Discharge: Date of : 54 Report #: [id number] [facility] Test Date: 2021-05-26 Test Time: 11:30:08 Pat Name: FABIANO YEAGER Department: Room: Gender: R D Manager: Anna EM : 1950 Requested By: Wilberto Olivares Order Number: [id number] MD: Adal Ortiz Measurements Intervals [place] Rate: 61 P: 27 NJ: 155 QRS: -6 QRSD: 95 T: 38 QT: 403 QTc: 406 Interpretive Statements Sinus rhythm Early transition Leftward axis Compared to ECG 04/09/2021 07:57:06 No significant changes Electronically Signed On 05-26-2021 12:25:03 WHEEL LOADER OPERATOR by Adal Ortiz [email or web address] <ELECTRONICALLY SIGNED> By: Adal Ortiz MD 05/26/21 1225 1130 1130 Adal Ortiz MD /RACHEL
[2021-05-27 01:06] LABS: GLYCOHEMOGLOBIN (HGB A1C) 5.5 % (4.8-5.6)
== END ==
LOC: PAC 10:01
PROVIDERS: ATTEND Surgery Vascular Surgery
DX: I20.8 Other forms of angina pectoris (principal); M47.819 Spondylosis without myelopathy or radiculopathy, site unspecified; I70.0 Atherosclerosis of aorta; I77.810 Thoracic aortic ectasia; M77.9 Enthesopathy, unspecified; Z01.818 Encounter for other preprocedural examination

== ENCOUNTER 2021-06-02 19:29 | Inpatient (IN) | payer OTHER ==
[~2021-06-02] VITALS: Ht 182.9 cm; Wt 93.0 kg
[~2021-06-02 19:29] MED LIST changes: +PACERONE 200 M200 M1 PO
[2021-06-02 19:32] VITALS: BP 147/80
[2021-06-02 20:55] LABS: ABSOLUTE NEUTROPHILS 6.3 thou/uL (1.4-8.2); BASOPHILS 0.8 % (0.0-2.0); EOSINOPHILS 1.1 % (0.0-3.0); HEMATOCRIT 32.5 % (42.0-52.0); HEMOGLOBIN 11.1 gm/dL (14.0-18.0); LYMPHOCYTES 15.5 % (24.0-44.0); MCH 31.8 pg (26.0-34.0); MCHC 34.3 g/dL (28.0-37.0); MONOCYTES 12.8 % (1.0-8.0); PLATELET COUNT 223 thou/uL (150-400); POLYS 69.8 % (36.0-66.0); RDW 13.4 % (10.5-14.5); WBC 9.1 thou/uL (4.0-11.0)
[2021-06-02 21:07] LABS: INR 1.18; PROTIME 12.8 Seconds (10.5-12.1)
[2021-06-02 21:10] LABS: CALCIUM 8.4 mg/dL (8.5-10.1); CREATININE 0.9 mg/dL (0.7-1.3); POTASSIUM 3.6 mmol/L (3.5-5.1)
[2021-06-02 21:21] LABS: TOTAL BILIRUBIN 1.2 mg/dL (0.2-1.0)
[2021-06-03 04:13] VITALS: BP 109/72
--- NOTE | 2021-06-03 07:39 | EKG ---
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 : 1950 Requested By: Brandan England Order Number: [id number] MD: Fred Aleman Measurements Intervals [place] Rate: 116 P: CO: QRS: -22 QRSD: 100 T: 48 QT: 308 QTc: 428 Interpretive Statements Atrial flutter Borderline left axis deviation RSR' in V1 or V2, right VCD or RVH Borderline repol abnrm, anterolateral leads Baseline wander in lead(s) II,V4,V5,V6 Compared to ECG 05/31/2021 07:33:25 Right ventricular hypertrophy now present RSR' in V1 or V2 now present Sinus rhythm no longer present Electronically Signed On 06-03-2021 7:39:12 [employer] by Fred Aleman [email or web address] <ELECTRONICALLY SIGNED> By: Fred Aleman MD, [facility] 06/03/21 0739 46 46 Fred Aleman MD, [facility] /EPI
[2021-06-03] MEDS ORDERED: TOPROL XL25 MG PO ×2 (08:02)
[2021-06-03] MEDS ORDERED: PACERONE 200 M200 M1 PO ×2 (08:02)
[2021-06-03 08:12] VITALS: BP 122/79
[2021-06-03 11:45] VITALS: BP 122/79
--- NOTE | 2021-06-03 11:57 | NUR ---
DISCONTINUE IV AND TELE. PT UNDERSTANDS ALL FOLLOW UP ORDERS. DISCHARGE TO HOME VIA PRIVATE VEHICLE.
== END 2021-06-03 12:47 | disposition home or self-care (01) | DRG 309 ==
LOC: ER 19:29 → EROBS 21:41
PROVIDERS: Emergency Medicine; ADMIT Internal Medicine; ATTEND Internal Medicine
DX: I48.91 Unspecified atrial fibrillation (principal); D62 Acute posthemorrhagic anemia; K21.9 Gastro-esophageal reflux disease without esophagitis; I25.10 Atherosclerotic heart disease of native coronary artery without angina pectoris; E78.5 Hyperlipidemia, unspecified; N40.0 Benign prostatic hyperplasia without lower urinary tract symptoms; Z20.822 Contact with and (suspected) exposure to COVID-19; I65.29 Occlusion and stenosis of unspecified carotid artery; E78.00 Pure hypercholesterolemia, unspecified; Z79.82 Long term (current) use of aspirin; Z79.899 Other long term (current) drug therapy; Z95.1 Presence of aortocoronary bypass graft; Z82.49 Family history of ischemic heart disease and other diseases of the circulatory system; Z28.21 Immunization not carried out because of patient refusal

== ENCOUNTER → 2021-06-09 | Outpatient (CLI) | payer OTHER ==
[~2021-06-09] MED LIST changes: +TOPROL XL25 MG PO
== END ==
LOC: SJCVCIMAG 15:11
PROVIDERS: ATTEND Surgery Vascular Surgery
DX: M79.605 Pain in left leg (principal); M79.89 Other specified soft tissue disorders